=== PATIENT | female | born 1995 | race Caucasian/White ===

== ENCOUNTER 2019-08-04 11:10 | Emergency (ER) | payer BC ==
[2019-08-04 11:29] VITALS: BP 103/56
--- NOTE | 2019-08-04 11:56 | ER Document Report ---
ED Medical Screen (RME) - General Chief Complaint: Abdominal Pain Stated Complaint: ABDOMINAL PAIN/NAUSEA Time Seen by Provider: 08/04/19 11:50 Notes: HPI: 24-year-old female presenting to the emergency department complaining of nausea today with some abdominal cramping. Patient states that she was seen a week ago at an urgent care for inflammation in the chest, was placed on a steroid and Macrobid stating she also had a UTI. States she had an EKG and chest x-ray at that time. States she had had some nausea and abdominal cramping at that time but that did not do any other work-up. She felt better all week but then today began having the nausea and cramping again. Still also has dysuria. I have greeted and performed a rapid initial assessment of this patient. A comprehensive ED assessment and evaluation of the patient, analysis of test results and completion of the medical decision making process will be conducted by additional ED providers PHYSICAL EXAMINATION: GENERAL: Well-appearing, well-nourished and in no acute distress. HEAD: Atraumatic, normocephalic. EYES: sclera anicteric, conjunctiva are normal. ENT: Moist mucous membranes. NECK: Normal range of motion LUNGS: Normal work of breathing, clear to auscultation HEART: 2+ radial pulses bilaterally, regular rate and rhythm ABD: limited by positioning for exam in triage. Mild suprapubic tenderness on palpation, no upper abdominal pain on palpation EXTREMITIES: no pitting or edema. No cyanosis. NEUROLOGICAL: No focal neurological deficits. Moves all extremities spontaneously and on command. PSYCH: Normal mood, normal affect. SKIN: Warm, Dry, normal turgor, no rashes or lesions noted. - Related Data Allergies/Adverse Reactions: No Known Allergies Allergy (Verified 08/04/19 11:49) Physical Exam - Vital signs Vitals: Temp Pulse Resp BP Pulse Ox 98.2 F 77 18 103/56 L 98 08/04/19 11:08/04/19 11:08/04/19 11:08/04/19 11:08/04/19 11:26 Course - Vital Signs Vital signs: Temp Pulse Resp BP Pulse Ox 98.2 F 77 18 103/56 L 98 08/04/19 11:08/04/19 11:08/04/19 11:08/04/19 11:26 08/04/19 11:26
[2019-08-04 12:25] LABS: ABSOLUTE LYMPHOCYTES (AUTO) 1.4 10^3/uL (0.5-4.7); ABSOLUTE MONOCYTES (AUTO) 0.8 10^3/uL (0.1-1.4); ABSOLUTE NEUT (AUTO) 5.8 10^3/uL (1.7-8.2); BASOPHILS % (AUTO) 0.4 % (0-2); EOSINOPHILS % (AUTO) 0.5 % (0-6); HEMATOCRIT 44.1 % (36.0-47.0); HEMOGLOBIN 14.9 g/dL (12.0-15.5); LYMPHOCYTES % (AUTO) 17.1 % (13-45); MEAN CORPUSCULAR HEMOGLOBIN 30.7 pg (27.0-33.4); MEAN CORPUSCULAR HGB CONC 33.7 g/dL (32.0-36.0); MEAN CORPUSCULAR VOLUME 91 fl (80-97); MONOCYTES % (AUTO) 9.6 % (3-13); PLATELET COUNT 254 10^3/uL (150-450); RED BLOOD COUNT 4.84 10^6/uL (3.72-5.28); RED CELL DISTRIBUTION WIDTH 12.6 % (11.5-14.0); SEGMENTED NEUTROPHILS % (AUTO) 72.4 % (42-78); TOTAL CELLS COUNTED % (AUTO) 100 %
[2019-08-04 12:29] LABS: APPEARANCE,URINE CLEAR; BILIRUBIN,URINE NEGATIVE (NEGATIVE); COLOR,URINE YELLOW; GLUCOSE, URINE NEGATIVE (NEGATIVE); KETONES,URINE NEGATIVE (NEGATIVE); LEUKOCYTE ESTERASE,URINE SMALL (NEGATIVE); NITRITE,URINE NEGATIVE (NEGATIVE); PROTEIN,URINE NEGATIVE (NEGATIVE); URINE SPECIFIC GRAVITY 1.008; UROBILINOGEN,URINE NEGATIVE mg/dL (<2.0)
[2019-08-04 12:45] LABS: ALKALINE PHOSPHATASE 67 U/L (38-126); ANION GAP 12 (5-19); ASPARTATE AMINO TRANSFERASE 21 U/L (14-36); BILIRUBIN,TOTAL 0.7 mg/dL (0.2-1.3); BLOOD UREA NITROGEN 19 mg/dL (7-20); CALCIUM 9.9 mg/dL (8.4-10.2); CARBON DIOXIDE 30 mmol/L (22-30); CHLORIDE 97 mmol/L (98-107); GLUCOSE 86 mg/dL (75-110); POTASSIUM 4.4 mmol/L (3.6-5.0); TOTAL PROTEIN 8.4 g/dL (6.3-8.2)
--- NOTE | 2019-08-04 13:02 | ER Document Report ---
ED GI/ - General Chief Complaint: Abdominal Pain Stated Complaint: ABDOMINAL PAIN/NAUSEA Time Seen by Provider: 08/04/19 11:50 TRAVEL OUTSIDE OF THE [place] IN LAST 30 DAYS: No - HPI Notes: 08/04/19 14:54 24-year-old female to the emergency department with complaints of lower abdominal pain and nausea that began this morning. She states that last week she was seen for chest pain and epigastric pain and was told to come to the emergency department as she began to feel nauseous because it could be her gallbladder. She states that last week when she was seen she was placed on Macrobid for UTI and steroids for her chest. She states that she had been doing well until this morning. She denies any fevers or chills. She denies any chest pain. She denies any shortness of breath. She denies any nausea vomiting or diarrhea. She states that this is her pain is in the lower abdomen in the pelvic region. - Related Data Allergies/Adverse Reactions: No Known Allergies Allergy (Verified 08/04/19 11:49) Past Medical History - General Information source: Patient - Social History Smoking Status: Former Smoker Frequency of alcohol use: Occasional Drug Abuse: None Family History: Reviewed & Not Pertinent Patient has suicidal ideation: No Patient has homicidal ideation: No Review of Systems - Review of Systems Constitutional: denies: Chills, Fever EENT: No symptoms reported Cardiovascular: denies: Chest pain, Palpitations, Heart racing, Dizziness, Lightheaded, Edema Respiratory: denies: Cough, Short of breath Gastrointestinal: See HPI, Abdominal pain, Nausea. denies: Diarrhea, Vomiting Genitourinary: No symptoms reported. denies: Flank pain Female Genitourinary: No symptoms reported Musculoskeletal: No symptoms reported Skin: No symptoms reported Hematologic/Lymphatic: No symptoms reported Neurological/Psychological: No symptoms reported -: Yes All other systems reviewed and negative Physical Exam - Vital signs Vitals: Temp Pulse Resp BP Pulse Ox 98.2 F 77 18 103/56 L 98 08/04/19 11:26 08/04/19 11:26 08/04/19 11:26 08/04/19 11:26 08/04/19 11:26 Interpretation: Normal - General General appearance: Appears well, Alert - HEENT Head: Normocephalic, Atraumatic Eyes: Normal Pupils: PERRL - Respiratory Respiratory status: No respiratory distress Chest status: Nontender Breath sounds: Normal. No: Rales, Rhonchi, Wheezing Chest palpation: Normal - Cardiovascular Rhythm: Regular Heart sounds: Normal auscultation Murmur: No - Abdominal Inspection: Normal Distension: No distension Bowel sounds: Normal Tenderness: Tender - Mild tenderness to palpation to the suprapubic and left lower quadrant; Without rebound or guarding Organomegaly: No organomegaly - Back Back: Normal, Nontender - Neurological Neuro grossly intact: Yes Cognition: Normal Orientation: AAOx4 Henry Coma Scale Eye Opening: Spontaneous Henry Coma Scale Verbal: Oriented Henry Coma Scale Motor: Obeys Commands Anthony Coma Scale Total: 15 Speech: Normal Cranial nerves: Normal Cerebellar coordination: Normal Motor strength normal: LUE, RUE, LLE, RLE Additional motor exam normals: Equal sales representatives Sensory: Normal - Psychological Associated symptoms: Normal affect, Normal mood - Skin Skin Temperature: Warm Skin Moisture: Dry Skin Color: Normal Course - Re-evaluation Re-evalutation: 08/04/19 14:56 Impression: Right ovarian cyst, nausea, lower abdominal pain. Urinalysis is reassuring today but will have patient complete her course of antibiotics. For follow with her FRONT OFFICE MANAGER and [place] for monitoring of the right ovarian cyst. La b work is within normal limits and her vital signs are reassuring. Urged to return if any worsening symptoms; patient agrees - Vital Signs Vital signs: Temp Pulse Resp BP Pulse Ox 98.2 F 77 18 103/56 L 98 08/04/19 11:26 08/04/19 11:26 08/04/19 11:26 08/04/19 11:26 08/04/19 11:26 - Laboratory Result Diagrams: 08/04/19 12:06 08/04/19 12:06 Laboratory results interpreted by me: 08/04/19 08/04/19 12:06 12:06 Chloride 97 L Total Protein 8.4 H Ur Leukocyte Esterase SMALL H - Diagnostic Test Radiology reviewed: Image reviewed, Reports reviewed Discharge - Discharge Clinical Impression: Lower abdominal pain, Nausea, Right ovarian cyst Condition: Stable Disposition: HOME, SELF-CARE Additional Instructions: Follow up with your FRONT OFFICE MANAGER in [place]. Return if worsening symptoms. Take medicines as prescribed. Complete your antibiotics but be sure to take them with food. Prescriptions: Naproxen [Naprosyn 375 Mg Tablet] 375 mg PO BID #20 tablet Ondansetron [Zofran Odt 4 mg Tablet] 1 - 2 tab PO Q4H PRN #15 tab.rapdis PRN Reason: For Nausea/Vomiting
[2019-08-04] MEDS ORDERED: KETOROLAC TROMETHAMINE 60 MG/2 ML SDV IM ONE (13:36)
--- NOTE | 2019-08-04 14:38 | RADIOLOGY REPORT (SQ) ---
EXAM DESCRIPTION: U/S NON OB PEL TV W/DOPPLER COMPLETED DATE/TIME: 08/04/2019 2:17 pm REASON FOR STUDY: left pelvic pain, eval TOA vs torsion COMPARISON: None. TECHNIQUE: Dynamic and static grayscale images acquired of the pelvis via transvaginal approach and recorded on PACS. Additional selected color Doppler and spectral images recorded. LIMITATIONS: None. FINDINGS: UTERUS: Contour normal. No mass. ENDOMETRIAL STRIPE: No focal or generalized thickening. No masses. CERVIX: No nabothian cysts. RIGHT OVARY AND DOPPLER: Normal size. 1.9 cm cyst. No worrisome masses. Normal arterial vascular fl ow without evidence for torsion. LEFT OVARY AND DOPPLER: Normal size. No worrisome masses. Normal arterial vascular flow without evide nce for torsion. FREE FLUID: None noted. OTHER: No other significant finding. MEASUREMENTS: UTERUS: 4.2 x 5.3 x 9.3 cm. ENDOMETRIAL STRIPE: 7 mm. RIGHT OVARY: 2.1 x 2.2 x 4.1 cm. LEFT OVARY: 1.7 x 1.8 x 3.1 cm. IMPRESSION: 1.9 CM SIMPLE CYST IN THE RIGHT OVARY. OTHERWISE UNREMARKABLE TRANSVAGINAL PELVIC ULTRA SOUND. TECHNICAL DOCUMENTATION: JOB ID: [id number] 2010 [employer]- All Rights Reserved Rev Reading location - IP/workstation name: [email or web address]
== END 2019-08-04 15:01 | disposition home or self-care (01) ==
LOC: ER 11:10
DX: N83.201 Unspecified ovarian cyst, right side (principal); R10.30 Lower abdominal pain, unspecified; R11.0 Nausea; R07.9 Chest pain, unspecified; R10.13 Epigastric pain; Z87.891 Personal history of nicotine dependence
CPT/HCPCS: 36415; 76830; 80053; 81001; 81025; 83690; 85025; 87086; 93976; 99284